=== PATIENT | male | born 1985 | race Two or more races ===

== ENCOUNTER 2018-06-21 17:48 | Emergency (ER) | payer OTHER ==
[~2018-06-21] VITALS: Ht 175.3 cm; Wt 81.6 kg
[2018-06-21] MEDS ORDERED: ACETAMINOPHEN ES 500 MG TABLET ONE (18:53)
[2018-06-21] MEDS ORDERED: IBUPROFEN 400 MG TABLET ONE (18:53)
[2018-06-21] MEDS ORDERED: IBUPROFEN 400 MG TABLET PO ONE (19:00)
[2018-06-21] MEDS ORDERED: ACETAMINOPHEN ES 500 MG TABLET PO ONE (19:00)
--- NOTE | 2018-06-21 19:11 | NUR ---
left ankle pain and swelling s/pp rolled ankle off the curb. PT AAOX3, VSS. PT REFUSED TO TAKE PAIN MEDS ORDERED BY PASCALE ANDREWS. PT REQUESTING PERCOCET. SEE MEDICATION NURSING NOTES & DOCUMENTED ON OMNICEL.
--- NOTE | 2018-06-21 19:48 | NUR ---
Patient discharged to home in stable condition. Written and verbal after care instructions given. Patient verbalizes understanding of instruction.
[2018-06-21 20:35] VITALS: BP 121/80
== END 2018-06-21 20:09 | disposition home or self-care (01) ==
LOC: ER 17:52
DX: S93.492A Sprain of other ligament of left ankle, initial encounter (principal); I10 Essential (primary) hypertension; Z76.5 Malingerer [conscious simulation]; W01.198A Fall on same level from slipping, tripping and stumbling with subsequent striking against other object, initial encounter; Y93.89 Activity, other specified; Y92.480 Sidewalk as the place of occurrence of the external cause; Y99.8 Other external cause status
CPT/HCPCS: 73590; 73610; 99284; A4606; Z7610